=== PATIENT | female | born 1985 | race Two or more races ===

== ENCOUNTER 2022-07-30 08:54 | Outpatient (CLI) | payer MEDICARE, MEDICAID | END 2022-07-30 23:59 | disposition home or self-care (01) | LOC: WOU 08:54 | PROVIDERS: ATTEND Podiatrist Foot & Ankle Surgery | DX: L89.623 Pressure ulcer of left heel, stage 3 (principal); Z99.3 Dependence on wheelchair; Q05.9 Spina bifida, unspecified; M41.9 Scoliosis, unspecified | CPT/HCPCS: 87070; 87075; G0463 ==

== ENCOUNTER 2022-08-06 10:15 | Outpatient (CLI) | payer MEDICARE, OTHER ==
[2022-08-06] MEDS ORDERED: LIDOCAINE SOLN 4% 50 ML BOTTLE ONE (10:39)
[2022-08-06] MEDS ORDERED: MUPIROCIN 2% CREAM 15 GM TUBE TP ONE (11:11)
== END 2022-08-06 23:59 | disposition home or self-care (01) ==
LOC: WOU 10:15
PROVIDERS: ATTEND Podiatrist Foot & Ankle Surgery
DX: L89.623 Pressure ulcer of left heel, stage 3 (principal); L89.893 Pressure ulcer of other site, stage 3; L89.510 Pressure ulcer of right ankle, unstageable; B95.61 Methicillin susceptible Staphylococcus aureus infection as the cause of diseases classified elsewhere; Q05.9 Spina bifida, unspecified
CPT/HCPCS: 11042

== ENCOUNTER 2022-08-13 11:06 | Outpatient (CLI) | payer MEDICARE, OTHER | END 2022-08-13 23:59 | disposition home or self-care (01) | LOC: WOU 11:06 | PROVIDERS: ATTEND Podiatrist Foot & Ankle Surgery | DX: L89.623 Pressure ulcer of left heel, stage 3 (principal); L89.510 Pressure ulcer of right ankle, unstageable; L89.893 Pressure ulcer of other site, stage 3; Q05.9 Spina bifida, unspecified | CPT/HCPCS: 11042; 87070; 87075; A6210 ==

== ENCOUNTER 2022-08-24 11:37 | Outpatient (CLI) | payer MEDICARE, OTHER ==
[2022-08-24] MEDS ORDERED: GENTAMICIN 0.1% CREAM 15 GM TUBE ONE (11:52)
[2022-08-24] MEDS ORDERED: CEFTRIAXONE 1 G VIAL IM ONE (12:30)
== END 2022-08-24 23:59 | disposition home health service (06) ==
LOC: WOU 11:37
PROVIDERS: ATTEND Podiatrist Foot & Ankle Surgery
DX: L89.623 Pressure ulcer of left heel, stage 3 (principal); L03.116 Cellulitis of left lower limb; B95.2 Enterococcus as the cause of diseases classified elsewhere; B95.61 Methicillin susceptible Staphylococcus aureus infection as the cause of diseases classified elsewhere; Z99.3 Dependence on wheelchair; Q05.9 Spina bifida, unspecified
CPT/HCPCS: 11043; 96372; J0696; J7040; J3490

== ENCOUNTER 2022-08-26 12:54 | Outpatient (CLI) | payer MEDICARE, OTHER | END 2022-08-26 23:59 | disposition home or self-care (01) | LOC: WOU 12:54 | PROVIDERS: ATTEND Registered Nurse | DX: L08.9 Local infection of the skin and subcutaneous tissue, unspecified (principal); L97.429 Non-pressure chronic ulcer of left heel and midfoot with unspecified severity; B95.61 Methicillin susceptible Staphylococcus aureus infection as the cause of diseases classified elsewhere; B96.89 Other specified bacterial agents as the cause of diseases classified elsewhere; Q05.9 Spina bifida, unspecified; Z99.3 Dependence on wheelchair | CPT/HCPCS: G0463 ==

== ENCOUNTER 2022-09-07 11:58 | Outpatient (CLI) | payer MEDICARE, OTHER ==
[~2022-09-07 11:58] MED LIST: BACI/NEOM/POLY B OINT PKT 1 UDPKT PACKET ONE
== END 2022-09-07 23:59 | disposition home health service (06) ==
LOC: WOU 11:58
PROVIDERS: ATTEND Podiatrist Foot & Ankle Surgery
DX: L89.624 Pressure ulcer of left heel, stage 4 (principal); L03.116 Cellulitis of left lower limb; Z99.3 Dependence on wheelchair; L89.893 Pressure ulcer of other site, stage 3; L89.510 Pressure ulcer of right ankle, unstageable
CPT/HCPCS: 11043; 97605; 87070; 87075; J7040

== ENCOUNTER 2022-09-10 11:12 | Outpatient (CLI) | payer MEDICARE, OTHER | END 2022-09-10 23:59 | disposition home health service (06) | LOC: WOU 11:12 | PROVIDERS: ATTEND Podiatrist Foot & Ankle Surgery | DX: L89.623 Pressure ulcer of left heel, stage 3 (principal); L03.116 Cellulitis of left lower limb; Z99.3 Dependence on wheelchair; B95.61 Methicillin susceptible Staphylococcus aureus infection as the cause of diseases classified elsewhere; Q05.9 Spina bifida, unspecified | CPT/HCPCS: 11043; 97605-TC ==

== ENCOUNTER 2022-09-14 14:06 | Outpatient (CLI) | payer MEDICARE, OTHER | END 2022-09-14 23:59 | disposition home health service (06) | LOC: WOU 14:06 | PROVIDERS: ATTEND Podiatrist Foot & Ankle Surgery | DX: L89.623 Pressure ulcer of left heel, stage 3 (principal); L03.116 Cellulitis of left lower limb; Z99.3 Dependence on wheelchair; Q05.9 Spina bifida, unspecified; B95.61 Methicillin susceptible Staphylococcus aureus infection as the cause of diseases classified elsewhere | CPT/HCPCS: 11043; 97605-TC ==

== ENCOUNTER 2022-09-17 13:48 | Outpatient (CLI) | payer MEDICARE, OTHER | END 2022-09-17 23:59 | disposition home health service (06) | LOC: WOU 13:48 | PROVIDERS: ATTEND Podiatrist Foot & Ankle Surgery | DX: L89.624 Pressure ulcer of left heel, stage 4 (principal); Q05.9 Spina bifida, unspecified; Z99.3 Dependence on wheelchair | CPT/HCPCS: C5275; Q4117; 15275 ==

== ENCOUNTER 2022-09-21 12:15 | Outpatient (CLI) | payer MEDICARE, OTHER | END 2022-09-21 23:59 | disposition home health service (06) | LOC: WOU 12:15 | PROVIDERS: ATTEND Podiatrist Foot & Ankle Surgery | DX: L89.624 Pressure ulcer of left heel, stage 4 (principal); Z99.3 Dependence on wheelchair; Q05.9 Spina bifida, unspecified | CPT/HCPCS: 15275; A6197; Q4196 ==

== ENCOUNTER 2022-09-28 11:14 | Outpatient (CLI) | payer MEDICARE, OTHER | END 2022-09-28 23:59 | disposition home or self-care (01) | LOC: WOU 11:14 | PROVIDERS: ATTEND Podiatrist Foot & Ankle Surgery | DX: L89.624 Pressure ulcer of left heel, stage 4 (principal); Z99.3 Dependence on wheelchair; Q05.9 Spina bifida, unspecified | CPT/HCPCS: 11043; 97605-TC ==

== ENCOUNTER 2022-10-01 10:51 | Outpatient (CLI) | payer MEDICARE, OTHER | END 2022-10-01 23:59 | disposition home or self-care (01) | LOC: WOU 10:51 | PROVIDERS: ATTEND Podiatrist Foot & Ankle Surgery | DX: L89.624 Pressure ulcer of left heel, stage 4 (principal); Q05.9 Spina bifida, unspecified; Z99.3 Dependence on wheelchair | CPT/HCPCS: 11043; 97605-TC ==

== ENCOUNTER 2022-10-05 11:24 | Outpatient (CLI) | payer MEDICARE, OTHER | END 2022-10-05 23:59 | disposition home or self-care (01) | LOC: WOU 11:24 | PROVIDERS: ATTEND Podiatrist Foot & Ankle Surgery | DX: L89.623 Pressure ulcer of left heel, stage 3 (principal); L08.9 Local infection of the skin and subcutaneous tissue, unspecified; B95.61 Methicillin susceptible Staphylococcus aureus infection as the cause of diseases classified elsewhere; Z99.3 Dependence on wheelchair | CPT/HCPCS: 11042; 97605-TC ==

== ENCOUNTER → 2022-10-07 | Outpatient (CLI) | payer MEDICARE, OTHER ==
[~2022-10-07] MED LIST changes: -BACI/NEOM/POLY B OINT PKT 1 UDPKT PACKET ONE; +CARB200T8 PO; +CIPR500T5 PO; +CLON2TAB11 PO; +ESCI10TA PO; +LEVO1TBD8 PO; +NORT10CA PO; +SULF1TAB48 PO
== END | disposition home or self-care (01) ==
LOC: WOU 13:00
PROVIDERS: ATTEND Internal Medicine Infectious Disease
DX: M86.8X7 Other osteomyelitis, ankle and foot (principal)
CPT/HCPCS: G0463

== ENCOUNTER 2022-10-08 11:06 | Outpatient (CLI) | payer MEDICARE, OTHER | END 2022-10-08 23:59 | disposition home or self-care (01) | LOC: WOU 11:06 | PROVIDERS: ATTEND Podiatrist Foot & Ankle Surgery | DX: L89.624 Pressure ulcer of left heel, stage 4 (principal); L08.9 Local infection of the skin and subcutaneous tissue, unspecified; B95.61 Methicillin susceptible Staphylococcus aureus infection as the cause of diseases classified elsewhere; Z99.3 Dependence on wheelchair | CPT/HCPCS: 11042; 97605-TC ==

== ENCOUNTER 2022-10-19 11:10 | Outpatient (CLI) | payer MEDICARE, OTHER | END 2022-10-19 23:59 | disposition home or self-care (01) | LOC: WOU 11:10 | PROVIDERS: ATTEND Podiatrist Foot & Ankle Surgery | DX: L89.624 Pressure ulcer of left heel, stage 4 (principal); M86.172 Other acute osteomyelitis, left ankle and foot; Z99.3 Dependence on wheelchair; Q05.9 Spina bifida, unspecified | CPT/HCPCS: 11043 ==

== ENCOUNTER 2022-10-21 14:12 | Inpatient (IN) | payer MEDICARE, OTHER ==
[~2022-10-21] VITALS: Ht 149.9 cm; Wt 43.1 kg
--- NOTE | 2022-10-21 14:18 | NUR ---
BIB FROM [facility] FOR L HEEL OSTEOMYELITIS/PICC LINE PLACEMENT FOR IV ANTIBIOTIC. PLACED IN BED, AAOX4, SUMAYA LOWER EXTRE. SPASM NOTED.
--- NOTE | 2022-10-21 14:45 | NUR ---
SWAB FOR COVID19 SENT TO LAB
[2022-10-21] MEDS ORDERED: VANCOMYCIN 1 GM in IV D5W 250 ML IV ONE (15:00)
[2022-10-21] MEDS ORDERED: CEFEPIME 1 GM in IV D5W 50 ML IV ONE (15:00)
[2022-10-21] MEDS ORDERED: IV NS 0.9% 1,000 ML BAG IV ONE (15:00)
[2022-10-21] MEDS ORDERED: CIPR500T5 PO (15:14)
[2022-10-21] MEDS ORDERED: NORT10CA PO (15:14)
[2022-10-21] MEDS ORDERED: CARB200T8 PO (15:14)
[2022-10-21] MEDS ORDERED: CLON2TAB11 PO (15:14)
[2022-10-21] MEDS ORDERED: ESCI10TA PO (15:14)
[2022-10-21] MEDS ORDERED: LEVO1TBD8 PO (15:14)
[2022-10-21] MEDS ORDERED: SULF1TAB48 PO (15:14)
--- NOTE | 2022-10-21 15:25 | NUR ---
CASHIER HOST/HOSTESS AT BEDSIDE
[2022-10-21 15:45] LABS: BASOPHILS % (AUTO) 0.5 % (0.0-2.0); EOSINOPHILS % (AUTO) 3.2 % (0.0-6.0); HEMATOCRIT 39 % (33-45); HEMOGLOBIN 12.8 g/dL (11.5-14.8); MEAN CORPUSCULAR HGB CONC 33 g/dl (31.0-36.0); MEAN CORPUSCULAR VOLUME 91 fL (82-100); MONOCYTES # (AUTO) 0.3 K/uL (0.1-1.30); NEUTROPHILS # (AUTO) 2.8 K/uL (1.8-8.9); NEUTROPHILS % (AUTO) 53.3 % (43.0-81.0); PLATELET COUNT (AUTO) 242 K/uL (150-450); RED BLOOD CELL COUNT(AUTO) 4.24 MIL/uL (4.0-5.2); WHITE BLOOD COUNT (AUTO) 5.3 K/uL (4.3-11.0)
[2022-10-21 15:56] LABS: CARBON DIOXIDE 29 mmol/L (21-32); CHLORIDE 105 mmol/L (98-107); CREATININE 0.6 mg/dL (0.6-1.3); GLUCOSE 91 mg/dL (74-106); POTASSIUM 3.8 mmol/L (3.5-5.1); SODIUM SERUM 140 mmol/L (136-145); UREA NITROGEN, BLOOD 11 mg/dL (7-18)
[2022-10-21 16:01] LABS: ALANINE AMINOTRANSFERASE 33 U/L (12-78); ALBUMIN 3.3 g/dL (3.4-5.0); ALKALINE PHOSPHATASE 58 U/L (46-116); ASPARTATE AMINOTRANSFERASE 19 U/L (15-37); BILIRUBIN,DIRECT 0.1 mg/dL (0.0-0.2); BILIRUBIN,TOTAL 0.2 mg/dL (0.2-1.0); TOTAL PROTEIN, SERUM 6.9 g/dL (6.4-8.2)
[2022-10-21] MEDS ORDERED: Z GUARD REMEDY 4 OZ OINT TP PRN (17:00)
[2022-10-21] MEDS ORDERED: ZOLPIDEM TARTRATE 5 MG TABLET PO PRN (17:00)
[2022-10-21] MEDS ORDERED: ONDANSETRON HCL/PF 4 MG/2 ML VIAL IVP PRN (17:00)
[2022-10-21] MEDS ORDERED: MAGNESIUM HYDROXIDE 30 ML UDC PO PRN (17:00)
[2022-10-21] MEDS ORDERED: MAG HYDROX/AL HYDROX/SIMETH 30 ML UDC PO PRN (17:00)
--- NOTE | 2022-10-21 18:29 | NUR ---
ROOM ASSIGNED. 321.2 ADMITTING AWARE.
[2022-10-21] MEDS ORDERED: PIPERACILLIN /TAZOBACTAM 3.375 G in IV D5W 50 ML IV SCH (19:00)
--- NOTE | 2022-10-21 19:51 | NUR ---
REPORT GIVEN TO TOMAS LI ROOM 321-2 FOR TOMI
[2022-10-21] MEDS ORDERED: SULFAMETHOXAZOLE/TRIMETHOPRIM 15 ML in IV D5W 500 ML IV SCH (20:00)
[2022-10-21 20:40] VITALS: BP 126/61
--- NOTE | 2022-10-21 21:30 | NUR ---
MS [place] TEAM LEADER NOTE ADMITTED THIS PATIENT FROM ER VIA [facility] WITH ER STAFF @ 2027. PATIENT IS ADMITTED DUE TO NONHEALING WOUND ON LEFT FOOT. PATIENT IS AWAKE, ALERT AND ORIENTED X 4. ON ROOM AIR; TOLERATING WELL WITH SATURATION OF 100%. BREATHING EVEN AND NONLABORED. DENIES ANY PAIN OR DISCOMFORT AT THIS TIME. WITH IV ACCESS ON LEFT ANTECUBITAL 20g; PATENT, INTACT AND SALINE LOCKED. BODY AND SKIN ASSESSMENT DONE; NOTED WITH LEFT FOOT ULCER AND REDNESS ON RIGHT INNER FOOT. PICTURES TAKEN AND PLACED TO CHART. ORIENTED TO STAFF, ROOM AND UNIT. INVENTORY OF PERSONAL BELONGINGS DONE AND FORM SIGNED. WITH VELEZ CATH IN PLACE; INTACT AND PATENT DRAINING WITH YELLOW URINE OUTPUT. ABLE TO MAKE NEEDS KNOWN. FALL AND SAFETY PRECAUTIONS IMPLEMENTED: BED ALARM ON, CALL LIGHT AND TABLE WITHIN REACH, SIDE RAILS UP X 3, BED IN LOWEST LOCKED POSITION. WILL CONTINUE TO MONITOR THROUGHOUT SHIFT.
[2022-10-21] MEDS: NORTRIPTYLINE HCL 10 MG CAPSULE PO SCH (22:36)
[2022-10-21] MEDS: CARBAMAZEPINE 200 MG TABLET PO SCH (22:36)
[2022-10-21] MEDS: clonazePAM 1 MG TABLET PO SCH (22:36)
[2022-10-21] MEDS ORDERED: VANCOMYCIN HCL 0.75 GM in IV D5W 250 ML IV SCH (23:00)
[2022-10-22] MEDS ORDERED: SULFAMETHOXAZOLE/TRIMETHOPRIM 15 ML in IV D5W 500 ML IV SCH (05:00)
[2022-10-22 06:19] LABS: BASOPHILS % (AUTO) 0.5 % (0.0-2.0); EOSINOPHILS % (AUTO) 3.8 % (0.0-6.0); HEMATOCRIT 36 % (33-45); HEMOGLOBIN 11.9 g/dL (11.5-14.8); LYMPHOCYTES # (AUTO) 2.7 K/uL (0.8-4.8); LYMPHOCYTES % (AUTO) 48.9 % (20.0-44.0); MEAN CORPUSCULAR HGB CONC 33 g/dl (31.0-36.0); MEAN CORPUSCULAR VOLUME 91 fL (82-100); MONOCYTES # (AUTO) 0.3 K/uL (0.1-1.30); MONOCYTES % (AUTO) 5.1 % (2.0-12.0); NEUTROPHILS # (AUTO) 2.3 K/uL (1.8-8.9); NEUTROPHILS % (AUTO) 41.7 % (43.0-81.0); PLATELET COUNT (AUTO) 212 K/uL (150-450); RED BLOOD CELL COUNT(AUTO) 3.94 MIL/uL (4.0-5.2); WHITE BLOOD COUNT (AUTO) 5.6 K/uL (4.3-11.0)
[2022-10-22 06:41] LABS: CALCIUM, SERUM 8.6 mg/dL (8.5-10.1); CREATININE 0.5 mg/dL (0.6-1.3); MAGNESIUM 2.1 mg/dL (1.8-2.4); POTASSIUM 3.8 mmol/L (3.5-5.1)
[2022-10-22 07:00] VITALS: BP 106/64
--- NOTE | 2022-10-22 07:00 | NUR ---
MS RN OPENING NOTES: RECEIVED PT IN BED,AA/O X 4 AND ABLE TO MAKE NEEDS KNOW,NO SOB OR CARDIAC DISTRESS NOTED. DENIES PAIN AT THIS TIME. NOTED WITH IV ACCESS ON BERT MIDLINE GAUGE 20 PATENT,INTACT AND SALINE LOCKED. NOTED WITH STRAIGHT CATHETER ATTACHED TO URINE BAG. KOMARISEL.ANNITA CARLOS CONTINENT STOMA NOTED. SAFETY MEASURES MAINTAINED: BED LOCKED AND IN LOWEST POSITION, SIDE RAILS UP X 2. CALL LIGHT AND BED SIDE TABLE IN EASY REACH FOR HELP. WILL MONITOR PT ACCORDINGLY.
--- NOTE | 2022-10-22 07:10 | NUR ---
MS RN CLOSING NOTE PATIENT IN BED; AWAKE, A/O X 4. STABLE ON ROOM AIR. IN NO ACUTE DISTRESS. DENIES ANY PAIN OR DISCOMFORT AT THIS TIME. WITH IV ACCESS ON LEFT UPPER ARM MIDLINE 20g; PATENT, INTACT AND SALINE LOCKED. WITH VELEZ CATH IN PLACE; INTACT AND PATENT DRAINING WITH YELLOW URINE OUTPUT. ALL NEEDS ATTENDED. ALL DUE MEDS GIVEN ORDERED. FALL AND SAFETY PRECAUTIONS MAINTAINED: BED ALARM ON, CALL LIGHT AND TABLE WITHIN REACH, SIDE RAILS UP X 3, BED IN LOWEST LOCKED POSITION. ENDORSED TO MORNING SHIFT FOR CONTINUITY OF CARE.
[2022-10-22] MEDS ORDERED: SULFAMETHOXAZOLE/TRIMETHOPRIM 10 ML in IV D5W 250 ML IV SCH (08:00)
[2022-10-22] MEDS: clonazePAM 1 MG TABLET PO SCH ×2 (08:37→21:15)
[2022-10-22] MEDS: PROSOURCE / PROSTAT (PYXIS) 30 ML UDC GT SCH ×3 (08:37→17:02)
[2022-10-22] MEDS: ESCITALOPRAM OXALATE (10 MG) 10 MG TABLET PO SCH (08:37)
[2022-10-22] MEDS: LEVONOR ETH ESTRAD PO SCH (09:12)
--- NOTE | 2022-10-22 09:46 | NUR ---
WOUND CARE CONSULT: PT PRESENTS WITH SCARRING TO LOWER BACK/SACRAL AREA, REDNESS TO RT ANKLE AND LEFT HEEL WOUND,PRESENT ON ADMISSION. DR CORONA CALLED FOR DPM CONSULT. DISCUSSED SKIN PROTECTION WITH NURSING STAFF. VELEZ CATH HAD BECOME DISLODGED. RN AWARE. IN AGREEMENT WITH PLAN OF CARE.
--- NOTE | 2022-10-22 10:20 | NUR ---
RN NOTES: DISLODGE STRAIGHT CATH NOTED.
--- NOTE | 2022-10-22 10:23 | NUR ---
RN NOTES: DR WILKINS ORDERED FOR FC INSERTION, ORDER NOTED AND CARRIED OUT. PT MADE AWARE.
--- NOTE | 2022-10-22 10:55 | NUR ---
RN NOTES: INSERTED FC TO PT AND TOLERATED WELL.
--- NOTE | 2022-10-22 11:00 | NUR ---
RN NOTES: CALLED LAB FOR UA SPECIMEN CONSULTING MANAGER SPOKE TO J LUIS (LAB)
[2022-10-22] MEDS: MUPIROCIN OINT 2% 22 GM TUBE TP SCH ×2 (12:57→16:11)
[2022-10-22] MEDS: SULFAMETHOXAZOLE/TRIMETHOPRIM 10 ML in IV D5W 250 ML IV SCH ×2 (14:17→21:15)
[2022-10-22 16:00] VITALS: BP 109/58
[2022-10-22] MEDS: AMMONIUM LACTATE 227 GM BOTTLE TP SCH (16:10)
[2022-10-22] MEDS: NORTRIPTYLINE HCL 10 MG CAPSULE PO SCH (17:03)
--- NOTE | 2022-10-22 18:54 | NUR ---
MS RN CLOSING NOTES: PT IN BED AA/O X4 AND ABLE TO MAKE NEEDS KNOWN, NO SOB OR CARDIAC DISTRESS NOTED. PT DENIES PAIN AT THIS TIME. WOUND CARE TREATMENT DONE AND PT TOLERATED WELL. IV ACCESS ON BERT MIDLINE GAUGE 20 PATENT,INTACT AND SALINE LOCKED. VELEZ CATHETER IN PLACE NOTED WITH CLEAR YELLOW COLORED URINE DRAINING VIA GRAVITY. WOUND CARE TREATMENT DONE AND PT TOLERATED WELL. PT ON LOW AIR LOSS MATTRESS. SAFETY MEASURES MAINTAINED: BED LOCKED AND IN LOWEST POSITION, SIDE RAILS UP X 2. CALL LIGHT AND BED SIDE TABLE IN EASY REACH FOR HELP. DUE AND AVAILABLE MEDS GIVEN ORDERED. ENDORSED TO INFORMATION SECURITY RN FOR CONTINUITY OF CARE.
--- NOTE | 2022-10-22 19:31 | NUR ---
MS RN OPENING NOTE RECEIVED PT AWAKE IN BED. A/O X4 AND ABLE TO MAKE NEEDS KNOWN. PT STABLE ON ROOM AIR. NO SOB OR S/S OF RESPIRATORY DISTRESS. BREATHING EVEN AND UNLABORED. IV ACCESS BERT MIDLINE SL, INTACT AND PATENT. WITH VELEZ CATHETER DRAINING URINE BY GRAVITY. SAFETY PRECAUTIONS IN PLACE. BED IN LOWEST LOCKED POSITION, SIDE RAILS UP X2, AND CALL LIGHT AND TABLE WITHIN REACH. ALL NEEDS MET AT THIS TIME.
[2022-10-22 20:00] VITALS: BP 108/67
[2022-10-22] MEDS: CARBAMAZEPINE 200 MG TABLET PO SCH (21:15)
[2022-10-23] MEDS: SULFAMETHOXAZOLE/TRIMETHOPRIM 10 ML in IV D5W 250 ML IV SCH ×3 (05:52→21:13)
[2022-10-23 05:55] LABS: CALCIUM, SERUM 8.9 mg/dL (8.5-10.1); CREATININE 0.5 mg/dL (0.6-1.3); POTASSIUM 4.2 mmol/L (3.5-5.1)
--- NOTE | 2022-10-23 06:47 | NUR ---
MS RN CLOSING NOTE PT RESTING IN BED, VERBALLY RESPONSIVE. A/O X4 AND ABLE TO MAKE NEEDS KNOWN. PT STABLE ON ROOM AIR. NO SOB OR S/S OF RESPIRATORY DISTRESS. BREATHING EVEN AND UNLABORED. IV ACCESS BERT MIDLINE SL, INTACT AND PATENT, RUNNING BACTRIM @ 260 ML/HR. WITH VELEZ CATHETER DRAINING URINE BY GRAVITY, DRAINED 800 CC THIS SHIFT. ALL DUE MEDS GIVEN ORDERED. TURNED AND REPOSITIONED Q2H. KEPT CLEAN AND DRY. SAFETY PRECAUTIONS IN PLACE AT ALL TIMES. BED IN LOWEST LOCKED POSITION, SIDE RAILS UP X2, AND CALL LIGHT AND TABLE WITHIN REACH. ALL NEEDS MET AT THIS TIME AND WILL ENDORSE TO ONCOMING NURSE FOR TOMI.
--- NOTE | 2022-10-23 07:00 | NUR ---
MS RN OPENING NOTES: RECEIVED PT IN BED,AA/O X 4 AND ABLE TO MAKE NEEDS KNOW,NO SOB OR CARDIAC DISTRESS NOTED. DENIES PAIN AT THIS TIME. NOTED WITH IV ACCESS ON BERT MIDLINE GAUGE 20 PATENT,INTACT AND SALINE LOCKED. NOTED WITH VELEZ CATHETER DRAINING CLEAR YELLOW COLORED URINE VIA GRAVITY. KOCK ANNITA CARLOS CONTINENT STOMA NOTED. SAFETY MEASURES MAINTAINED: BED LOCKED AND IN LOWEST POSITION, SIDE RAILS UP X 2. CALL LIGHT AND BED SIDE TABLE IN EASY REACH FOR HELP. WILL MONITOR PT ACCORDINGLY.
[2022-10-23 08:00] VITALS: BP 121/74
[2022-10-23] MEDS: LEVONOR ETH ESTRAD PO SCH (08:17)
[2022-10-23] MEDS: PROSOURCE / PROSTAT (PYXIS) 30 ML UDC GT SCH ×3 (08:17→17:02)
[2022-10-23] MEDS: ESCITALOPRAM OXALATE (10 MG) 10 MG TABLET PO SCH (08:17)
[2022-10-23] MEDS: clonazePAM 1 MG TABLET PO SCH ×2 (08:17→20:07)
[2022-10-23] MEDS: DAKINS QUARTER STRENGTH (0.125%) 480 ML BOTTLE TOP SCH (08:25)
[2022-10-23] MEDS: AMMONIUM LACTATE 227 GM BOTTLE TP SCH ×2 (08:25→17:02)
[2022-10-23] MEDS: MUPIROCIN OINT 2% 22 GM TUBE TP SCH ×3 (08:26→17:02)
--- NOTE | 2022-10-23 08:39 | NUR ---
RN NOTES: PT REQUESTED ENEMA PT HAS ANNITA MALLONE/KOCK CONTINENT STOMA ON HER RIGHT ABDOMEN, PT STATED THAT SHES NOT HAVING ANY BM IN THE PAST DAYS, INFORMED DR WILKINS AND STATED OKAY FOR ENEMA. ORDER NOTED AND CARRIED OUT.
[2022-10-23] MEDS ORDERED: NA PHOS,M-B/NA PHOS,DI-BA 1 EA ENEMA RC ONE (09:00)
[2022-10-23 16:00] VITALS: BP 97/56
--- NOTE | 2022-10-23 17:45 | NUR ---
RN NOTES: WOUND CARE TREATMENT DONE. COLLECTED WOUND CULTURE SPECIMEN PROPERLY LABELLED, CALLED [facility] (LAB) FOR SPECIMEN GRINDER HARDBOARD.
--- NOTE | 2022-10-23 18:44 | NUR ---
MS RN CLOSING NOTES: PT IN BED AWAKE, ALERT AND ORIENTED X4 AND ABLE TO MAKE NEEDS KNOWN, NO SOB OR CARDIAC DISTRESS NOTED. PT DENIES PAIN AT THIS TIME. WOUND CARE TREATMENT DONE AND PT TOLERATED WELL. IV ACCESS ON BERT MIDLINE GAUGE 20 PATENT,INTACT AND SALINE LOCKED. VELEZ CATHETER IN PLACE NOTED WITH CLEAR YELLOW COLORED URINE DRAINING VIA GRAVITY. SAFETY MEASURES MAINTAINED: BED LOCKED AND IN LOWEST POSITION, SIDE RAILS UP X 2. CALL LIGHT AND BED SIDE TABLE IN EASY REACH FOR HELP. DUE AND AVAILABLE MEDS GIVEN ORDERED. ENDORSED TO BLANKET BINDER RN FOR CONTINUITY OF CARE.
--- NOTE | 2022-10-23 19:00 | NUR ---
RN OPENING NOTE RECEIVED PT AWAKE IN BED. PT IS A/O X 4, ABLE TO MAKE NEEDS KNOWN. PT IS IN RA, TOLERATING WELL, BREATHING EVEN AND UNLABORED @ THIS TIME. PT IV PRESENT ON THE LEFT UPPER MIDLINE, PATENT, INTACT AND FLUSHES WELL W/ NO S & SX OF INFILTRATION @ SITE NOTED. PT VELEZ CATHETER IS IN PLACE DRAINING CLEAR COLORED URINE. SAFETY MEASURES IS IN PLACE. BED IN LOWEST & LOCKED POSITION. SIDE RAILS UP X 2. BEDSIDE TABLE AND CALL LIGHT IS EASY REACH. WILL CONTINUE TO MONITOR PT ACCORDINGLY.
[2022-10-23 20:00] VITALS: BP 121/66
[2022-10-23] MEDS ORDERED: NORTRIPTYLINE HCL 10 MG CAPSULE PO SCH (21:00)
[2022-10-23] MEDS: CARBAMAZEPINE 200 MG TABLET PO SCH (21:13)
--- NOTE | 2022-10-24 05:00 | NUR ---
WOUND CARE AND DRESSING CHANGE DONE ORDERED.
[2022-10-24] MEDS: SULFAMETHOXAZOLE/TRIMETHOPRIM 10 ML in IV D5W 250 ML IV SCH ×3 (05:04→21:01)
--- NOTE | 2022-10-24 06:38 | NUR ---
RN CLOSING NOTE PT ASLEEP & RESTING COMFORTABLY IN BED. PT IS A/O X 4, RESPONSIVE AND FOLLOWS VERBAL COMMAND. PT IS IN RA, W/ NO S& SX OF RESPIRATORY DISTRESS NOTED @ THIS TIME. PT IV PRESENT ON THE LEFT UPPER MIDLINE, PATENT, INTACT AND FLUSHES WELL W/ NO S & SX OF INFILTRATION @ SITE NOTED. PT VELEZ CATHETER IS IN PLACE DRAINING CLEAR YELLOW COLORED URINE ADMINISTERED MEDICATION ACCORDINGLY PER MD'S ORDER. SAFETY MEASURES IS IN PLACE. BED IN LOWEST & LOCKED POSITION. SIDE RAILS UP X 2. BEDSIDE TABLE AND CALL LIGHT IS EASY REACH. WILL ENDORSE PT TO THE NEXT SHIFT FOR TOMI.
--- NOTE | 2022-10-24 07:00 | NUR ---
MS RN OPENING NOTES: RECEIVED PT IN BED,AA/O X 4 AND ABLE TO MAKE NEEDS KNOW,NO SOB OR CARDIAC DISTRESS NOTED. DENIES PAIN AT THIS TIME. NOTED WITH IV ACCESS ON BERT MIDLINE GAUGE 20 PATENT,INTACT AND SALINE LOCKED. NOTED WITH VELEZ CATHETER DRAINING CLEAR YELLOW COLORED URINE VIA GRAVITY. KOCK ANNITA CARLOS CONTINENT STOMA NOTED. ON AGGRESSIVE WOUND CARE TID. SAFETY MEASURES MAINTAINED: BED LOCKED AND IN LOWEST POSITION, SIDE RAILS UP X 2. CALL LIGHT AND BED SIDE TABLE IN EASY REACH FOR HELP. WILL MONITOR PT ACCORDINGLY.
[2022-10-24] MEDS: PROSOURCE / PROSTAT (PYXIS) 30 ML UDC GT SCH ×3 (08:28→17:11)
[2022-10-24] MEDS: LEVONOR ETH ESTRAD PO SCH (08:28)
[2022-10-24] MEDS: ESCITALOPRAM OXALATE (10 MG) 10 MG TABLET PO SCH (08:29)
[2022-10-24] MEDS: ENSURE ENLIVE CHOC 237 ML CAN PO SCH ×3 (08:29→17:11)
[2022-10-24] MEDS: clonazePAM 1 MG TABLET PO SCH ×2 (08:29→17:38)
[2022-10-24] MEDS: AMMONIUM LACTATE 227 GM BOTTLE TP SCH ×2 (08:32→17:14)
[2022-10-24] MEDS: DAKINS QUARTER STRENGTH (0.125%) 480 ML BOTTLE TOP SCH (08:32)
[2022-10-24] MEDS: MUPIROCIN OINT 2% 22 GM TUBE TP SCH ×3 (08:32→17:14)
[2022-10-24 09:14] VITALS: BP 99/63
[2022-10-24] MEDS: ACETAMINOPHEN 325 MG TABLET PO PRN (15:15)
[2022-10-24 15:57] VITALS: BP 110/59
--- NOTE | 2022-10-24 17:39 | NUR ---
RN NOTES: INFORMED DR WILKINS IF PT CAN HAVE HER KLONOPIN EARLIER WHICH DUE TONIGHT AT 2100 PT STATED SHE HAS BAD SPASMS AND KLONOPIN HELPS. DR WILKINS STATED ITS OKAY. PT MADE AWARE.
--- NOTE | 2022-10-24 18:45 | NUR ---
MS RN CLOSING NOTES: PT IN BED AWAKE, ALERT AND ORIENTED X4 AND ABLE TO MAKE NEEDS KNOWN, NO SOB OR CARDIAC DISTRESS NOTED. PT DENIES PAIN AT THIS TIME. WOUND CARE TREATMENT DONE AND PT TOLERATED WELL. IV ACCESS ON BERT MIDLINE GAUGE 20 PATENT,INTACT AND SALINE LOCKED. VELEZ CATHETER IN PLACE NOTED WITH CLEAR YELLOW COLORED URINE DRAINING VIA GRAVITY. SAFETY MEASURES MAINTAINED: BED LOCKED AND IN LOWEST POSITION, SIDE RAILS UP X 2. CALL LIGHT AND BED SIDE TABLE IN EASY REACH FOR HELP. DUE AND AVAILABLE MEDS GIVEN ORDERED. ENDORSED TO TRANSIT MECHANIC RN FOR CONTINUITY OF CARE.
--- NOTE | 2022-10-24 19:30 | NUR ---
MS RN OPENING NOTE RECEIVED PATIENT IN BED, WITH HOB ELEVATED, ALERT AND ORIENTED X 4. ABLE TO MAKE NEEDS KNOWN. AFEBRILE AND NOT IN ANY FORM OF ACUTE DISTRESS. BREATHING EVEN AND NON LABORED. NO C/O PAIN OR DISCOMFORT AT THIS TIME. WITH IV ACCESS ON BERT MIDLINE-SL. WITH INTACT VELEZ CATHETER, DRAINING WELL WITH YELLOW URINE OUTPUT, NO HEMATURIA OR SEDIMENTS NOTED. WITH RLQ ANNITA MALLONE STOMA. SAFETY MEASURES IN PLACE. KEPT BED IN LOCKED AND IN LOW POSITION. SIDE RAILS UP X2. ADVISED TO USE THE CALL LIGHT WHEN IN NEED OF ASSISTANCE.
[2022-10-24 19:56] VITALS: BP_SYST 110
[2022-10-24] MEDS: NORTRIPTYLINE HCL 10 MG CAPSULE PO SCH (20:24)
[2022-10-24] MEDS: CARBAMAZEPINE 200 MG TABLET PO SCH (21:01)
[2022-10-25] MEDS: SULFAMETHOXAZOLE/TRIMETHOPRIM 10 ML in IV D5W 250 ML IV SCH ×3 (05:47→21:52)
--- NOTE | 2022-10-25 06:30 | NUR ---
MS RN CLOSING NOTE PATIENT IN BED, WITH HOB ELEVATED, ALSEEP BUT EASY TO AROUSE AND RESPONSIVE. ABLE TO MAKE NEEDS KNOWN. AFEBRILE AND NOT IN ANY FORM OF ACUTE DISTRESS. BREATHING EVEN AND NON LABORED. NO C/O PAIN OR DISCOMFORT THROUGHOUT THE SHIFT. WITH IV ACCESS ON BERT MIDLINE-SL. WITH INTACT VELEZ CATHETER, DRAINING WELL WITH YELLOW URINE OUTPUT, NO HEMATURIA OR SEDIMENTS NOTED WITH APPROX. 1400ML URINE OUTPUT DURING THE SHIFT. WITH RLQ ANNITA MALLONE STOMA. MEDICATED ORDERED. CONTINUOUS ON IV ATB FOR OSTEOMYELITIS, MONIOTER FOR ANY ADVERSE REACTION. WOUND CARE DONE. SAFETY MEASURES IN PLACE. KEPT BED IN LOCKED AND IN LOW POSITION. SIDE RAILS UP X2. ADVISED TO USE THE CALL LIGHT WHEN IN NEED OF ASSISTANCE. TURNED AND REPOSITIONED EVERY 2 HOURS AND TOLERATED TO PROMOTE PROPER CIRCULATION AND COMFORT. ALL NURSING NEEDS ATTENDED. ENDORSED TO INCOMING SHIFT FOR CONTINUITY OF CARE.
--- NOTE | 2022-10-25 07:25 | NUR ---
MS RN OPENING NOTES: RECEIVED PT IN BED, ASLEEP BUT AROUSABLE , ROOM AIR , ABLE TO MAKE NEEDS KNOW,NO SOB OR DISTRESS NOTED AT THIS TIME . DENIES PAIN AT THIS TIME. IV ACCESS ON BERT MIDLINE GAUGE 20 PATENT,INTACT AND SALINE LOCKED. NOTED WITH VELEZ CATHETER DRAINING CLEAR YELLOW COLORED URINE VIA GRAVITY. KOCK ANNITA CARLOS CONTINENT STOMA NOTED. ON AGGRESSIVE WOUND CARE TID. SAFETY MEASURES MAINTAINED: BED LOCKED AND IN LOWEST POSITION, SIDE RAILS UP X 2. CALL LIGHT AND BED SIDE TABLE IN EASY REACH FOR HELP. WILL MONITOR PT ACCORDINGLY.
[2022-10-25] MEDS: PROSOURCE / PROSTAT (PYXIS) 30 ML UDC GT SCH ×3 (08:01→16:37)
[2022-10-25] MEDS: ENSURE ENLIVE CHOC 237 ML CAN PO SCH ×4 (08:07→16:37)
[2022-10-25 09:01] VITALS: BP 106/58
[2022-10-25] MEDS: ESCITALOPRAM OXALATE (10 MG) 10 MG TABLET PO SCH (09:20)
[2022-10-25] MEDS: clonazePAM 1 MG TABLET PO SCH ×2 (09:20→21:41)
[2022-10-25] MEDS: LEVONOR ETH ESTRAD PO SCH (09:24)
[2022-10-25] MEDS: MUPIROCIN OINT 2% 22 GM TUBE TP SCH ×3 (09:29→17:05)
[2022-10-25] MEDS: DAKINS QUARTER STRENGTH (0.125%) 480 ML BOTTLE TOP SCH (09:29)
[2022-10-25] MEDS: AMMONIUM LACTATE 227 GM BOTTLE TP SCH ×2 (09:29→17:04)
[2022-10-25] MEDS ORDERED: LACTULOSE 10 G/15 ML UDC (PYXIS) PO PRN (12:30)
[2022-10-25] MEDS: SENNOSIDES 8.6 MG TABLET PO SCH (17:02)
--- NOTE | 2022-10-25 18:34 | NUR ---
MS RN CLOSING NOTES: RECEIVED PT IN BED, AWAKE A/OX4 , ROOM AIR , ABLE TO MAKE NEEDS KNOW,NO SOB OR DISTRESS NOTED AT THIS TIME . DENIES PAIN AT THIS TIME. IV ACCESS ON BERT MIDLINE GAUGE 20 PATENT,INTACT AND SALINE LOCKED. NOTED WITH VELEZ CATHETER DRAINING CLEAR YELLOW COLORED URINE VIA GRAVITY. KOCK ANNITA CARLOS CONTINENT STOMA NOTED. WITH BM X 2 , WOUND DRESSING DONE ON THE LEFT HEEL . SAFETY MEASURES MAINTAINED: BED LOCKED AND IN LOWEST POSITION, SIDE RAILS UP X 2. CALL LIGHT AND BED SIDE TABLE IN EASY REACH FOR HELP. ENDORSED TO NEXT SHIFT .
[2022-10-25 20:00] VITALS: BP 117/63
--- NOTE | 2022-10-25 20:30 | NUR ---
MS RN OPENING NOTES: RECEIVED PT IN BED AWAKED IN BED AOX4 ABLE TO MAKE NEEDS KNOW,ON RM AIR AVINASH WELL SAT 98%,NO SOB DISTRESS NOTED,DENIES PAIN AT THIS TIME. IV ACCESS ON BERT MIDLINE GAUGE 20 PATENT,INTACT AND SALINE LOCKED. VELEZ CATHETER DRAINING CLEAR YELLOW COLORED URINE VIA GRAVITY. SAFETY MEASURES MAINTAINED: BED LOCKED AND IN LOWEST POSITION, SIDE RAILS UP X 2. CALL LIGHT AND BED SIDE TABLE IN EASY REACH FOR HELP. WILL CONTINUE TO MONITOR.
[2022-10-25] MEDS ORDERED: MINERAL OIL 133 ML (PYXIS) 1 EA ENEMA RC ONE (21:30)
[2022-10-25] MEDS: NORTRIPTYLINE HCL 10 MG CAPSULE PO SCH (21:41)
[2022-10-25] MEDS: CARBAMAZEPINE 200 MG TABLET PO SCH (21:41)
--- NOTE | 2022-10-25 22:00 | NUR ---
RN NOTE; PT MOM LINNEA CALLED WAS COMPLAINING ABOUT THE PT NOT BOWEL MOVEMENT FOR 14DAYS,I TALKED TO JOSUE MACE D.REGARDING THE MOM COMPLAINED WITH A NEW ORDER,DISIMPACK IF FLEET ENEMA NOT EFFECTIVE.
[2022-10-26] MEDS: SULFAMETHOXAZOLE/TRIMETHOPRIM 10 ML in IV D5W 250 ML IV SCH ×3 (05:13→21:15)
--- NOTE | 2022-10-26 06:35 | NUR ---
MS RN CLOSING NOTES: PATIENT IN BED AWAKED IN BED AOX4 ABLE TO MAKE NEEDS KNOW,ON RM AIR AVINASH WELL SAT 97%,NO SOB DISTRESS NOTED,DENIES PAIN AT THIS TIME. IV ACCESS ON BERT MIDLINE GAUGE 20 PATENT,INTACT AND SALINE LOCKED. VELEZ CATHETER DRAINING TUNG URINE OUTPUT. SAFETY MEASURES MAINTAINED: BED LOCKED AND IN LOWEST POSITION, SIDE RAILS UP X 2. CALL LIGHT AND BED SIDE TABLE IN EASY REACH FOR HELP. WILL ENDORSED TO NEXT SHIFT.
[2022-10-26] MEDS ORDERED: ANESTHESIA TRAY IN PYXIS 1 EA TRAY MC ONE (06:56)
[2022-10-26] MEDS ORDERED: MIDAZOLAM HCL 2 MG/2ML VIAL ONE (07:06)
[2022-10-26] MEDS ORDERED: ROCURONIUM BROMIDE 50 MG/5 ML ONE (07:06)
[2022-10-26] MEDS ORDERED: FENTANYL PF 250MCG/5ML AMPUL ONE (07:06)
[2022-10-26] MEDS ORDERED: VANCOMYCIN 1 GM VIAL ONE (07:46)
--- NOTE | 2022-10-26 07:58 | NUR ---
MS RN OPENING NOTE Patient brought down to OR for debridement.
[2022-10-26] MEDS: ENSURE ENLIVE CHOC 237 ML CAN PO SCH ×3 (08:00→17:23)
[2022-10-26] MEDS: MUPIROCIN OINT 2% 22 GM TUBE TP SCH ×3 (09:00→17:00)
--- NOTE | 2022-10-26 09:00 | NUR ---
RN NOTE Patient brought back to room 321-1 from OR, s/p Left foot debridement with allograft. VS taken as follows: BP 81/46, HR 72, RR 19, Temp 97.5, SPO2 98% on room air. Left foot surgical dressing c/d/i. Will continue to monitor.
[2022-10-26] MEDS: SENNOSIDES 8.6 MG TABLET PO SCH ×2 (09:36→17:16)
[2022-10-26] MEDS: PROSOURCE / PROSTAT (PYXIS) 30 ML UDC GT SCH ×3 (09:36→17:23)
[2022-10-26] MEDS: LEVONOR ETH ESTRAD PO SCH (09:37)
[2022-10-26] MEDS: clonazePAM 1 MG TABLET PO SCH ×2 (09:37→21:12)
[2022-10-26] MEDS: ESCITALOPRAM OXALATE (10 MG) 10 MG TABLET PO SCH (09:37)
[2022-10-26] MEDS: DAKINS QUARTER STRENGTH (0.125%) 480 ML BOTTLE TOP SCH (09:39)
[2022-10-26] MEDS: AMMONIUM LACTATE 227 GM BOTTLE TP SCH ×2 (09:39→17:31)
--- NOTE | 2022-10-26 15:00 | NUR ---
RN NOTE Patient remains stable with VS: BP 123/69, HR 61, RR 20, SPO2 96%, Temp 98.2. Surgical dressing on Left foot, remains c/d/i.
[2022-10-26 15:54] VITALS: BP 123/69
--- NOTE | 2022-10-26 19:34 | NUR ---
RN NOTE Patient complains of severe spasm and requesting is she can take her Tegretol 200 mg PO earlier, Dr. Immanuel Zaidi notified and ordered a one time order for Tegretol 200 mg PO now.
--- NOTE | 2022-10-26 19:44 | NUR ---
MS RN CLOSING NOTE Patient in bed, resting. A/O x 4, able to make needs known. Stable on room air, no SOB or s/s of distress noted. IV access on TAMRA PICC line, intact and patent. Surgical dressing on Left foot c/d/i. All needs attended to. Due meds given. Brown catheter in place, draining to a yellow colored urine with an output of 1000 cc. Safety precautions in place: bed in low, locked position; siderails up x 2; call light within reach. Will endorse to realtime reporter nurse for TOMI.
[2022-10-26] MEDS: ACETAMINOPHEN 325 MG TABLET PO PRN (19:48)
--- NOTE | 2022-10-26 19:48 | NUR ---
MS RN OPENING NOTES: RECEIVED PT IN BED AWAKED IN BED AOX4 ABLE TO MAKE NEEDS KNOW,ON ROOM AIR AND TOLERATING WELL SAT 97%,NO SOB NOTED. NO DISTRESS NOTED. NOTED WITH HEADACHE. GAVE 650 MG TYLENOL. IV ACCESS ON TAMRA PICCLINE PATENT,INTACT AND SALINE LOCKED. VELEZ CATHETER DRAINING CLEAR YELLOW COLORED URINE VIA GRAVITY. ALL SAFETY MEASURES MAINTAINED: BED LOCKED AND IN LOWEST POSITION, SIDE RAILS UP X 2. CALL LIGHT AND BED SIDE TABLE IN EASY REACH . WILL CONTINUE TO MONITOR CLOSELY.
[2022-10-26 20:00] VITALS: BP 140/90
[2022-10-26] MEDS ORDERED: CARBAMAZEPINE 200 MG TABLET PO ONE (20:00)
[2022-10-26] MEDS: NORTRIPTYLINE HCL 10 MG CAPSULE PO SCH (21:12)
[2022-10-26] MEDS: CARBAMAZEPINE 200 MG TABLET PO SCH (21:24)
[2022-10-27] MEDS: SULFAMETHOXAZOLE/TRIMETHOPRIM 10 ML in IV D5W 250 ML IV SCH ×2 (05:32→13:55)
--- NOTE | 2022-10-27 06:36 | NUR ---
MS RN CLOSING NOTES: PT IN BED AWAKE. AOX4 ABLE TO MAKE NEEDS KNOW,ON ROOM AIR AND TOLERATING WELL SAT 97%,NO SOB NOTED. NO DISTRESS NOTED. IV ACCESS ON TAMRA PICCLINE PATENT,INTACT AND SALINE LOCKED. VELEZ CATHETER DRAINING CLEAR YELLOW COLORED URINE VIA GRAVITY. URINE OUTPUT NOTED 1000 ML. ALL DUE MEDS GIVEN ORDERED.ALL SAFETY MEASURES MAINTAINED: BED LOCKED AND IN LOWEST POSITION, SIDE RAILS UP X 2. CALL LIGHT AND BED SIDE TABLE IN EASY REACH . WILL ENDORSE FOR TOMI.
[2022-10-27 07:00] VITALS: BP 98/55
--- NOTE | 2022-10-27 08:00 | NUR ---
MS RN OPENING NOTES: RECEIVED PATIENT ASLEEP IN BED, EASILY AWAKEN. AOX4, ABLE TO MAKE NEEDS KNOWN, TOLERATING ROOM AIR WITHOUT ANY DISTRESS NOTED. PATENT IV ACCESS ON TAMRA PICC LINE, CLEAN, INTACT AND SALINE LOCKED, FLUSHING WELL. VELEZ CATHETER DRAINING CLEAR YELLOW URINE WITHOUT ANY SEDIMENTS VIA GRAVITY. DENIED PAIN NOR DISCOMFORT. SAFETY MEASURES IN PLACE: BED LOCKED AND IN THE LOWEST POSITION, SIDE RAILS UP X 2. CALL LIGHT AND TRAY TABLE WITHIN EASY REACH . WILL CONTINUE TO MONITOR.
[2022-10-27] MEDS: ENSURE ENLIVE CHOC 237 ML CAN PO SCH ×3 (08:41→17:00)
[2022-10-27] MEDS: PROSOURCE / PROSTAT (PYXIS) 30 ML UDC GT SCH ×3 (08:41→17:00)
[2022-10-27] MEDS: LEVONOR ETH ESTRAD PO SCH (08:41)
[2022-10-27] MEDS: clonazePAM 1 MG TABLET PO SCH (08:42)
[2022-10-27] MEDS: ESCITALOPRAM OXALATE (10 MG) 10 MG TABLET PO SCH (08:42)
[2022-10-27] MEDS: SENNOSIDES 8.6 MG TABLET PO SCH ×2 (08:42→17:00)
[2022-10-27] MEDS: MUPIROCIN OINT 2% 22 GM TUBE TP SCH ×5 (08:43→16:03)
[2022-10-27] MEDS: AMMONIUM LACTATE 227 GM BOTTLE TP SCH ×2 (08:43→17:00)
--- NOTE | 2022-10-27 13:41 | NUR ---
RN NOTES - PATIENT IS COMPLAINING OF SPASM AND REQUESTED FOR CARBAMAZEPINE 200 MG SHE WAS TAKING IT TID AND PRN AT HOME, INFORMED DR BARBARA Salinas THAT IT IS ONLY SCHEDULED AT NIGHT, OKAY TO GIVE IT NOW THE PATIENT IS BEING DISCHARGED THIS AFTERNOON.
[2022-10-27] MEDS ORDERED: CARBAMAZEPINE 200 MG TABLET PO SCH (14:00)
--- NOTE | 2022-10-27 17:57 | NUR ---
MS PHYSICIAN ASSISTANT CERTIFIED NOTES PATIENT DISCHARGED TO HOME WITH HOME HEALTH IN STABLE CONDITION, AOX4, ABLE TO MAKE NEEDS KNOWN, STABLE ON ROOM AIR, DENIED PAIN NOR DISCOMFORT AT THE MOMENT, BED BATH GIVEN FIRST, LEFT FOOT CUSHION DRESSING CHANGED, DISCHARGE INSTRUCTIONS GIVEN TO PT AND YASMANI YARBROUGH REGARDING HOME HEALTH, DME VENDOR, AND FOLLOW UP VISIT WITH DR CORONA. TAMRA PICC LINE RETAINED FOR MACHINE PRINTER HOSE ATB TREATMENT BY HOME HEALTH, VELEZ CATHETER REMOVED SAFELY, PATIENT WAS ABLE TO VOID. ALL BELONGINGS ACCOUNTED FOR, FORM SIGNED BY THE PATIENT. GIVEN PATIENT SOME WOUND SUPPLIES FOR WOUND REINFORCEMENT. PATIENT LEFT THE UNIT VIA HER ELECTRIC WHEELCHAIR WITH YASMANI LINNEA AT AROUND [id number], ACCOMPANIED BY LICENSING AND REGISTRATION DIRECTOR TO THE LOBBY SAFELY. CHARGE NURSE AND MD AWARE OF THE DC.
[2022-10-28] MEDS ORDERED: SULFAMETHOXAZOLE/TRIMETHOPRIM 10 ML in IV D5W 250 ML IV SCH ×2
== END 2022-10-27 18:00 | disposition home health service (06) | DRG 463 ==
LOC: ER 14:33 → MED 18:38
PROVIDERS: ADMIT Nurse Practitioner Acute Care
PROC: 05HC33Z Insertion of Infusion Device into Left Basilic Vein, Percutaneous Approach (ICD-10-PCS; 2022-10-21)
PROC: 0JBR0ZZ Excision of Left Foot Subcutaneous Tissue and Fascia, Open Approach (ICD-10-PCS; principal; 2022-10-26)
PROC: 0HRNXK3 Replacement of Left Foot Skin with Nonautologous Tissue Substitute, Full Thickness, External Approach (ICD-10-PCS; 2022-10-26)
PROC: 02HV33Z Insertion of Infusion Device into Superior Vena Cava, Percutaneous Approach (ICD-10-PCS; 2022-10-26)
PROC: B548ZZA Ultrasonography of Superior Vena Cava, Guidance (ICD-10-PCS; 2022-10-26)
DX: M86.172 Other acute osteomyelitis, left ankle and foot (principal); L89.624 Pressure ulcer of left heel, stage 4; G82.20 Paraplegia, unspecified; Z16.35 Resistance to multiple antimicrobial drugs; Q05.9 Spina bifida, unspecified; Z20.822 Contact with and (suspected) exposure to COVID-19; Z99.3 Dependence on wheelchair; Z91.041 Radiographic dye allergy status; Z79.899 Other long term (current) drug therapy; Z98.890 Other specified postprocedural states; B95.7 Other staphylococcus as the cause of diseases classified elsewhere; K59.00 Constipation, unspecified
CPT/HCPCS: 36410; 36415; 36569; 71045-TC; 73650-TC; 80048-TC; 80076-TC; 83605-TC; 83735-TC; 84100-TC; 84484-TC; 84703-TC; 85025-TC; 85730-TC; 86850-TC; 87040-TC; 87081-TC; A4223; A6403; C9803; G0378; J0690; J0692; J2250; J2405; J2543; J2704; J2765; J3010; J3370; J3490; J7030; J7040; J7060; Q4186

== ENCOUNTER → 2022-10-28 | Outpatient (CLI) | payer MEDICARE, OTHER ==
[~2022-10-28] MED LIST changes: -CIPR500T5 PO; -SULF1TAB48 PO
== END | disposition home or self-care (01) ==
LOC: WOU 13:45
PROVIDERS: ATTEND Podiatrist Foot & Ankle Surgery
DX: L89.623 Pressure ulcer of left heel, stage 3 (principal); M86.172 Other acute osteomyelitis, left ankle and foot; Q05.9 Spina bifida, unspecified; Z99.3 Dependence on wheelchair
CPT/HCPCS: G0463

== ENCOUNTER 2022-11-02 11:48 | Outpatient (CLI) | payer MEDICARE, OTHER | END 2022-11-02 23:59 | disposition home health service (06) | LOC: WOU 11:48 | PROVIDERS: ATTEND Podiatrist Foot & Ankle Surgery | DX: L89.624 Pressure ulcer of left heel, stage 4 (principal); Q05.9 Spina bifida, unspecified; G82.20 Paraplegia, unspecified; Z99.3 Dependence on wheelchair | CPT/HCPCS: 15275; A6454; Q4196; G0463 ==

== ENCOUNTER 2022-11-09 10:56 | Outpatient (CLI) | payer MEDICARE, OTHER | END 2022-11-09 23:59 | disposition home health service (06) | LOC: WOU 10:56 | PROVIDERS: ATTEND Podiatrist Foot & Ankle Surgery | DX: L89.624 Pressure ulcer of left heel, stage 4 (principal); Q05.9 Spina bifida, unspecified; G82.20 Paraplegia, unspecified; Z99.3 Dependence on wheelchair | CPT/HCPCS: 15275; Q4196 ==

== ENCOUNTER 2022-11-16 10:54 | Outpatient (CLI) | payer MEDICARE, OTHER | END 2022-11-16 23:59 | disposition home health service (06) | LOC: WOU 10:54 | PROVIDERS: ATTEND Podiatrist Foot & Ankle Surgery | DX: L89.624 Pressure ulcer of left heel, stage 4 (principal); Q05.9 Spina bifida, unspecified; G82.20 Paraplegia, unspecified; Z99.3 Dependence on wheelchair | CPT/HCPCS: 15275; Q4196 ==

== ENCOUNTER 2022-11-23 10:55 | Outpatient (CLI) | payer MEDICARE, OTHER | END 2022-11-23 23:59 | disposition home health service (06) | LOC: WOU 10:55 | PROVIDERS: ATTEND Podiatrist Foot & Ankle Surgery | DX: L89.624 Pressure ulcer of left heel, stage 4 (principal); Q05.9 Spina bifida, unspecified; G82.20 Paraplegia, unspecified; Z99.3 Dependence on wheelchair | CPT/HCPCS: 15275; Q4196 ==

== ENCOUNTER 2022-12-10 11:24 | Outpatient (CLI) | payer MEDICARE, OTHER ==
[2022-12-16] MEDS ORDERED: DAPT500V IV (13:41)
[2022-12-16] MEDS ORDERED: LEVO750T46 PO (13:41)
== END 2022-12-10 23:59 | disposition home health service (06) ==
LOC: WOU 11:24
PROVIDERS: ATTEND Podiatrist Foot & Ankle Surgery
DX: L89.624 Pressure ulcer of left heel, stage 4 (principal); Q05.9 Spina bifida, unspecified; G82.20 Paraplegia, unspecified; Z99.3 Dependence on wheelchair
CPT/HCPCS: G0463; A4649

== ENCOUNTER 2023-01-25 11:51 | Outpatient (CLI) | payer MEDICARE, OTHER ==
[~2023-01-25 11:51] MED LIST changes: +COLLAGENASE 5 GM TUBE UD TP ONE; +DAPT500V IV; +LEVO750T46 PO
== END 2023-01-25 23:59 | disposition home health service (06) ==
LOC: WOU 11:51
PROVIDERS: ATTEND Podiatrist Foot & Ankle Surgery
DX: L89.623 Pressure ulcer of left heel, stage 3 (principal); Q05.9 Spina bifida, unspecified; G82.20 Paraplegia, unspecified; Z79.899 Other long term (current) drug therapy; F41.9 Anxiety disorder, unspecified; Z99.3 Dependence on wheelchair
CPT/HCPCS: 11042; A4649

== ENCOUNTER 2023-02-08 10:55 | Outpatient (CLI) | payer MEDICARE, OTHER ==
[~2023-02-08 10:55] MED LIST changes: -COLLAGENASE 5 GM TUBE UD TP ONE
== END 2023-02-08 23:59 | disposition home health service (06) ==
LOC: WOU 10:55
PROVIDERS: ATTEND Podiatrist Foot & Ankle Surgery
DX: L89.624 Pressure ulcer of left heel, stage 4 (principal); Q05.9 Spina bifida, unspecified; G82.50 Quadriplegia, unspecified; Z99.3 Dependence on wheelchair; R25.2 Cramp and spasm
CPT/HCPCS: 11042; 87070; A4649

== ENCOUNTER 2023-03-01 10:58 | Outpatient (CLI) | payer MEDICARE, OTHER | END 2023-03-01 23:59 | disposition home health service (06) | LOC: WOU 10:58 | PROVIDERS: ATTEND Podiatrist Foot & Ankle Surgery | DX: L89.624 Pressure ulcer of left heel, stage 4 (principal); G82.20 Paraplegia, unspecified; Q05.9 Spina bifida, unspecified; Z99.3 Dependence on wheelchair | CPT/HCPCS: 15275; Q4158 ==

== ENCOUNTER 2024-02-03 11:19 | Outpatient (CLI) | payer MEDICARE, OTHER ==
[2024-02-03] MEDS ORDERED: MUPIROCIN 2% CREAM 15 GM TUBE TP ONE (12:04)
== END 2024-02-03 23:59 | disposition home health service (06) ==
LOC: WOU 11:19
PROVIDERS: ATTEND Podiatrist Foot & Ankle Surgery
DX: S90.822A Blister (nonthermal), left foot, initial encounter (principal); X58.XXXA Exposure to other specified factors, initial encounter; Y92.89 Other specified places as the place of occurrence of the external cause; Q05.9 Spina bifida, unspecified; G82.20 Paraplegia, unspecified; R60.0 Localized edema

== ENCOUNTER 2024-02-14 12:17 | Outpatient (CLI) | payer MEDICARE, OTHER | END 2024-02-14 23:59 | disposition home or self-care (01) | LOC: MSC 12:17 | PROVIDERS: ATTEND Internal Medicine | DX: R32 Unspecified urinary incontinence (principal); R33.9 Retention of urine, unspecified; N31.9 Neuromuscular dysfunction of bladder, unspecified; Q05.4 Unspecified spina bifida with hydrocephalus; Z98.2 Presence of cerebrospinal fluid drainage device; M62.81 Muscle weakness (generalized); S24.109D Unspecified injury at unspecified level of thoracic spinal cord, subsequent encounter; G43.909 Migraine, unspecified, not intractable, without status migrainosus; L89.609 Pressure ulcer of unspecified heel, unspecified stage; F41.9 Anxiety disorder, unspecified; M41.9 Scoliosis, unspecified ==